=== PATIENT | male | born 1995 | race Caucasian/White ===

== ENCOUNTER 2019-03-20 21:56 | Emergency (ER) | payer OTHER ==
[~2019-03-20] VITALS: Ht 188 cm; Wt 158.8 kg
[2019-03-21] MEDS ORDERED: KETO10TA2 PO (03:12)
[2019-03-21] MEDS ORDERED: PEPCID AC20 MG PO (03:12)
[2019-03-21] MEDS ORDERED: INTESTINEX680 M1 PO (03:12)
== END 2019-03-21 03:28 | disposition home or self-care (01) ==
LOC: ER 21:56
DX: I88.0 Nonspecific mesenteric lymphadenitis (principal); R10.2 Pelvic and perineal pain